=== PATIENT | female | born 1965 | race African-American/Black ===

== ENCOUNTER 2016-08-29 23:53 | Inpatient (IN) | payer OTHER ==
[~2016-08-29] VITALS: Ht 170.2 cm; Wt 109.3 kg
--- NOTE | ~2016-08-29 | EKG ---
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
--- NOTE | ~2016-08-29 | H ---
[facility] [place] [address] HISTORY AND PHYSICAL Name: FLORIAN MCGOWAN Room #: 424-P [facility] IN ..#: [id number] Admission: 08/30/16 Attend Phys: Zafar Stephens MD Discharge: 08/30/16 Date of : 63 Report #: [id number] THIS REPORT FOR: //name// CC: CAMERON unknown Zafar Stephens PRIMARY CARE DOCTOR: Unknown. CHIEF COMPLAINT: Rectal bleeding. HISTORY OF PRESENT ILLNESS: The patient is a 50-year-old female with a history of hypertension though she is not on any medications at this time secondary to intolerance of her JUAN MIGUEL inhibitor, presented to the ER secondary to rectal bleeding. She indicates that she woke up this morning to have a bowel movement and had a large amount of blood, but no stool. She initially described the blood as a maroonish color, but later indicated that was brighter than that. She denies any prior history of this. She does indicate a history of constipation and pain with bowel movements, but is uncertain as to whether she has any hemorrhoids or not. She has never had a colonoscopy. She has never been diagnosed with diverticular disease. Her episode today did not have any pain associated with it. She has not had any further episodes coming; however, she has not been up to the bathroom either. She does smoke, but denies any family history of colon cancer. She denies any lightheadedness, chest pain, or shortness of breath associated with her bleeding. PAST MEDICAL HISTORY: Hypertension, although she is currently on no medications for it. She was prescribed JUAN MIGUEL inhibitor, but reports having a cough with that. CURRENT MEDICATIONS: Include Macrobid and Pyridium. PAST SURGICAL HISTORY: She has had a tonsillectomy and x 1. ALLERGIES: None, although as stated she indicates COUGH WITH JUAN MIGUEL INHIBITOR. SOCIAL HISTORY: She continues to smoke, drinks recreationally. REVIEW OF SYSTEMS: A 14-point review of system was conducted, all negative except for above. FAMILY HISTORY: Reviewed and noncontributory. PHYSICAL EXAMINATION: VITAL SIGNS: Temperature 97, pulse 70, blood pressure 169/100, and O2 sats 100% on room air. GENERAL: She is awake and alert, answering questions appropriately, in no acute respiratory distress. HEENT: Normocephalic, atraumatic. Pupils are equal. [address] [address] HISTORY AND PHYSICAL Name: FLORIAN MCGOWAN Room #: 424-P [facility] IN [facility]#: [id number] Admission: 08/30/16 Attend Phys: Zafar Stephens MD Discharge: 08/30/16 Date of : 63 Report #: [id number] NECK: Supple. CARDIOVASCULAR: Regular rate and rhythm. No murmurs. LUNGS: Clear to auscultation bilaterally. No crackles or wheeze. ABDOMEN: Soft and obese. No distention or tenderness. Normoactive bowel sounds. EXTREMITIES: No edema. NEUROLOGIC: Nonfocal. LABS AND TESTING: CT of the abdomen and pelvis showed no bowel obstruction or inflammatory process, no diverticuli. She has had mild bilateral adrenal hyperplasia, which is small adenomas. H and H on admission was 15 and 45 with an MCV of 84 and platelets 142. Her repeat H and H is 14 and 42. INR is 1.0. Sodium 141, potassium 3.6, BUN and creatinine 17 and 1.1. LFTs are negative. ASSESSMENT AND PLAN: 1. Painless rectal bleeding, suspect diverticular bleed, potential hemorrhoids as well. We will keep her n.p.o., await GI evaluation. Avoid antiplatelets and anticoagulants at this time. 2. Uncontrolled hypertension secondary to noncompliance. We will start her on some hydrochlorothiazide and monitor clinical improvement. 3. Morbid obesity. The patient will benefit from outpatient weight loss program. 4. Deep venous thrombosis prophylaxis with NSAIDs in light of the above. By: [id number] Daniela Shepherd MD /nt
[~2016-08-29 23:53] MED LIST: FOLIC ACID1 MG; IBUPROFEN 600600 M1 PO; MACROBID 100 M100 M1 PO; MECLIZINE HCL25 M1 PO; METHOTREXATE 22.5 M1; PHENAZOPYRIDIN200 M2 PO; PREDNISONE 10 M10 MG; PROVENTIL HFA6.7 G1 INH; TESSALON PERLE100 MG PO; ZPAK PO
[2016-08-30] VITALS: BP 157/107
[2016-08-30 00:56] LABS: ABSOLUTE NEUTROPHILS 2.6 thou/uL (1.4-8.2); BASOPHILS 1.1 % (0.0-2.0); EOSINOPHILS 10.8 % (0.0-3.0); HEMATOCRIT 45.2 % (37.0-47.0); HEMOGLOBIN 15.2 gm/dL (12.0-15.0); MANUAL DIFF NO; MCH 28.5 pg (26.0-34.0); MCHC 33.5 g/dL (28.0-37.0); MCV 84.9 fL (80.0-100.0); PLATELET COUNT 142 thou/uL (150-400); POLYS 48.1 % (36.0-66.0); RBC 5.32 mil/uL (4.20-5.00); RDW 14.7 % (10.5-14.5); WBC 5.4 thou/uL (4.0-11.0)
[2016-08-30 01:05] LABS: ANION GAP 12 mmol/L (7-16); BUN 17 mg/dL (7-18); CALCIUM 9.3 mg/dL (8.5-10.1); CHLORIDE 106 mmol/L (98-107); CO2 23 mmol/L (21-32); CREATININE 1.1 mg/dL (0.6-1.3); GLUCOSE 125 mg/dL (70-99); POTASSIUM 3.6 mmol/L (3.5-5.1); SODIUM 141 mmol/L (136-145)
[2016-08-30 01:12] LABS: ALBUMIN 3.4 g/dL (3.4-5.0); ALKALINE PHOSPHATASE 129 U/L (46-116); SGOT 18 U/L (15-37); SGPT 17 U/L (30-65); TOTAL BILIRUBIN 0.5 mg/dL (<0.1-1.0); TOTAL PROTEIN 7.7 g/dL (6.4-8.2); TROPONIN-I < 0.04 ng/mL (<0.04-0.07)
[2016-08-30 01:21] LABS: APTT 29.7 Seconds (24.5-32.8); PROTIME 10.2 Seconds (9.3-11.4)
[2016-08-30 04:14] LABS: HEMATOCRIT 42.4 % (37.0-47.0)
[2016-08-30 04:45] VITALS: BP 157/84
[2016-08-30 04:50] VITALS: BP 178/105
[2016-08-30 08:11] VITALS: BP 169/100
[2016-08-30] MEDS ORDERED: HYDRALAZINE 2525 MG PO (13:35)
[2016-08-30 13:41] VITALS: BP 169/100
[2016-08-30] MEDS ORDERED: HYDROCHLOROTHIA25 M2 PO ×2 (14:13→14:16)
[2016-08-30 14:38] VITALS: BP 169/100
== END 2016-08-30 15:12 | disposition home or self-care (01) | DRG 379 ==
LOC: ER 23:53 → EROBS 08-30 03:56 → 4E 08-30 04:45
PROVIDERS: Emergency Medicine
DX: K62.5 Hemorrhage of anus and rectum (principal); K57.30 Diverticulosis of large intestine without perforation or abscess without bleeding; I10 Essential (primary) hypertension; E66.01 Morbid (severe) obesity due to excess calories; F17.210 Nicotine dependence, cigarettes, uncomplicated; Z91.14 Patient's other noncompliance with medication regimen; Z88.8 Allergy status to other drugs, medicaments and biological substances; Z68.37 Body mass index [BMI] 37.0-37.9, adult
CPT/HCPCS: 10183